=== PATIENT | female | born 1985 ===

== ENCOUNTER 2018-06-22 16:18 | Emergency (ER) | payer OTHER ==
[2018-06-22 16:44] VITALS: BMI 28.9
--- NOTE | 2018-06-22 17:32 | OBDCSUM ---
Datetime: 06/22/2018 17:22 Discharged to, Provider: Home Follow up at, Provider: Dr. Pantoja Disch Instr Activity: Normal activity; May be up to bathroom; May be up for meals; May Shower Disch Instr Diet: Regular Discharge Instructions, Provider: Routine instructions given Discharge Diagnosis, Provider: PROM - Indicate X Hours Discharge Time: 06/22/2018 17:23 Follow up in weeks, Provider: Jul 05, 2018 Disch Referrals: None Discharge Comment, Provider: Pre-term labor precautions given Encouraged to increase hydration Continue with current care Discharge Diagnosis Prov Other: Rule out PPROM at 30.6 weeks
--- NOTE | 2018-06-22 17:32 | OBHP ---
Datetime: 06/22/2018 16:23 IP Adm Impression: , intrauterine IP Admit Plan: Discharge home Admit Comment, IP Provider: CC: Clear vaginal watery vaginal discharge HPI: Patient is a 32 yo at 30.6 weeks with KRISTIAN (08/25/2018) and LMP (11/18/17), who presents to the ED with complaint of clear watery vaginal discharge with mild odor that she noted this morning at 11am. Patient states that she called her Mobile Security Specialist, who then asked her to present to the hospital to ru le out rupture membrane. Upon questioning, patient admits to movement and denies contractions, vaginal bleeding, dysuria, and recent sexual activities. Patient was treated for UTI 2 weeks ago. : Dr. Pantoja OB Hx: G1: Current, no complications. 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 Denies current or former use of Tobacco or illicit guillermo g and admits to social ETOH before VS: See above, wnl PE: See in PE comment box A/P: Patient is a 32 year old female at 30.6 weeks, rule out PPROM: 1. EFM and TOCO, reveiwed, approprate for gestational age 2. Physical examination ruled out PPROM 3. Bedside US: heartbeat present, breeched position, normal BECKI 4. Notify private attending 5. Plans for discharge with labor precautions given All plans and management discussed with Dr. Lang Above by Dr. Amaro, PGY 2 I have seen and examined the patient with Dr. Amaro, agree with above notations patient is not ruptured, no signs of labor labor precuations discussed encouraged PO hydration follow up with private physician as scheduled on 07/05 discharge home Pelvic Type - PN: Adequate Extremities - PN: Not Done Abdomen - PN: Not Done Back - PN: Not Done Breast - PN: Not Done Lungs - PN: Not Done Heart - PN: Not Done Thyroid - PN: Not Done Neurologic - PN: Not Done HEENT - PN: Normal General - PN: Normal Presentation-Admit: Breech FHR - Baseline A Provider: 140 Comments, ACOG Physical Exam: Gen: NAD, well-appearing Cardio: RRR, +S1, + S2 Pulm: CTA b/l Abd: Soft, gravid Ext: No edema SSE: no pooling, negative nitrazine SVE: closed cervix, unengaged Gestation - Est Wks by US: 30.6 Pool Provider: Negative Nitrazine Provider: Negative Vital Signs Provider: Reviewed; Within Normal Limits IP Chief Complaint: Suspected ruptured membranes NICHD Accel Fetus A IP Provider: 10X10 FHR Category Provider Fetus A: Category I NICHD Decel Fetus A IP Provider: None Dilatation, Provider: 0 Genitourinary Exam: Normal DTRs - PN: Not Done
[2018-06-22 22:03] VITALS: BP 110/62; PULSE 67; RESP 18; TEMP 97.2
== END 2018-06-22 17:38 | disposition home or self-care (01) ==
LOC: C.EROB 16:18
DX: O26.93 Pregnancy related conditions, unspecified, third trimester (principal); Z3A.30 30 weeks gestation of pregnancy

== ENCOUNTER 2018-07-08 23:06 | Emergency (ER) | payer OTHER ==
--- NOTE | 2018-07-09 02:15 | OBHP ---
Datetime: 07/09/2018 02:08 IP Adm Impression: , intrauterine IP Admit Plan: Observation/Evaluation Admit Comment, IP Provider: 32 @ 33w presents today with complaints of trauma fall. Pt was gett ing out of the care and she lost her balance and fell and landed on her left knee and right wrist. A/P: S/P TRAUMA 1) VSS; AFEBRILE 2) MONITOR 4 HOURS. 3) SEND BACK TO THE ER TO MONITOR/TREAT LEFT KNEE- ABRASION D/T HER FALL. Pelvic Type - PN: Adequate Extremities - PN: Normal Abdomen - PN: Normal Back - PN: Normal Breast - PN: Normal Lungs - PN: Normal Heart - PN: Normal Thyroid - PN: Normal Neurologic - PN: Normal HEENT - PN: Normal General - PN: Normal FHR - Baseline A Provider: 150 IP Hx Assessment: The History has been Reviewed and is Current EGA AdmitDate IP: 33.2 IP Chief Complaint: Trauma/Fall NICHD Variability Prov Fetus A: Moderate 6-25bpm NICHD Accel Fetus A IP Provider: 15X15 Genitourinary Exam: Normal DTRs - PN: Normal
[2018-07-10 11:13] VITALS: BP 98/61; PULSE 72; RESP 18; TEMP 97.9
== END 2018-07-09 03:40 | disposition still patient (30) ==
LOC: C.EROB 23:06
DX: O26.93 Pregnancy related conditions, unspecified, third trimester (principal); Z3A.33 33 weeks gestation of pregnancy

== ENCOUNTER 2018-07-09 03:46 | Emergency (ER) | payer OTHER ==
[2018-07-09 03:47] VITALS: BMI 28.9
[2018-07-09 04:14] VITALS: BP 109/72; PULSE 70; RESP 20; TEMP 97.6; O2SAT 100
--- NOTE | 2018-07-09 04:24 | C.PDOC ---
History Of Present Illness 32 y/o female presents to the ED for evaluation of left knee after she fell onto the knee at home. Patient is currently in the late stage of her . She was evaluated upstairs by Dr. Pantoja, who states there are no related concerns at this time. Her wound was cleaned and ice was applied. Patient was sent to the ED for further evaluation. She denies head injury or extremity weakness. Time Seen by Provider: 07/09/18 04:13 Chief Complaint (Nursing): Lower Extremity Problem/Injury History Per: Patient History/Exam Limitations: no limitations Onset/Duration Of Symptoms: Hrs Current Symptoms Are (Timing): Still Present Additional History Per: Patient - Ankle/Foot Description Of Injury: Fell Past Medical History Reviewed: Historical Data, Nursing Documentation, Vital Signs Vital Signs: Last Vital Signs Temp 97.6 F 07/09/18 04:04 Pulse 70 07/09/18 04:04 Resp 20 07/09/18 04:04 BP 109/72 07/09/18 04:04 Pulse Ox 100 07/09/18 04:04 - Medical History PMH: No Chronic Diseases Surgical History: No Surg Hx Family History: States: Unknown Family Hx - Social History Hx Alcohol Use: No Hx Substance Use: No Review Of Systems Musculoskeletal: Positive for: Other (left knee pain ) Neurological: Negative for: Weakness, Numbness Physical Exam - Physical Exam Appears: Non-toxic, No Acute Distress Skin: Normal Color, Warm, Dry, Other (small abrasion to left knee ) Extremity: Normal ROM (left knee ), Capillary Refill (less than 2 seconds ), No Deformity, Swelling (minor, pre-patellar ), No Other (joint effusion ) Neurological/Psych: Oriented x3, Normal Speech, Normal Cognition ED Course And Treatment O2 Sat by Pulse Oximetry: 100 (on RA) Pulse Ox Interpretation: Normal Progress Note: Tylenol PO given. Medical Decision Making Medical Decision Making: prepatellar contusion Bursitis NSAIDS/tylenol ice defer x-ray as no joint involvement, and normal knee fxn prior eval tonight w Dr. Pantoja for late wnl Disposition Doctor Will See Patient In The: Office Counseled Patient/Family Regarding: Studies Performed, Diagnosis - Disposition Referrals: Mehran Pantoja MD [Staff Provider] - Disposition: HOME/ ROUTINE Disposition Time: 04:23 Condition: GOOD Additional Instructions: ice packs to anterior knee 1/2 hour per hour Tylenol 650 mg every 6 hours as needed outpatient follow-up as needed. Instructions: Prepatellar Bursitis Forms: [facility] ([place]) - Clinical Impression Clinical Impression: Contusion of knee, left - Scribe Statement The provider has reviewed the documentation as recorded by the Scribe (Siria Lang) Provider Attestation: All medical record entries made by the Scribe were at my direction and personally dictated by me. I have reviewed the chart and agree that the record a ccurately reflects my personal performance of the history, physical exam, medical decision making, and the department course for this patient. I have also personally directed, reviewed, and agree with the discharge instructions and disposition.
== END 2018-07-09 04:53 | disposition home or self-care (01) ==
LOC: C.ER 03:46
DX: S80.02XA Contusion of left knee, initial encounter (principal); W18.30XA Fall on same level, unspecified, initial encounter; Y92.009 Unspecified place in unspecified non-institutional (private) residence as the place of occurrence of the external cause

== ENCOUNTER 2018-07-10 12:55 | Emergency (ER) | payer OTHER ==
[2018-07-10] MEDS ORDERED: Sodium Chloride 0.9% 1,000 ML IV ONE (13:43)
--- NOTE | 2018-07-10 13:48 | OBHP ---
Datetime: 07/10/2018 13:44 IP Adm Impression: , intrauterine IP Admit Plan: Observation/Evaluation; Discharge home Admit Comment, IP Provider: CC: irritability/crampimng HPI: Patient is a 32 yo at 33.3 weeks with KRISTIAN (08/25/2018) and LMP (11/18/17), who presents wit h abdominal cramping and loose stools since this morning. She had takeout yesterday. +FM - CTX - LOF - VB. Patient was treated for UTi in this prengnacy. Patient was evaluated for a fall over the weeken d, no abdominal trauma. : Dr. Pantoja OB Hx: G1: Current, no complications. 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 Denies any hx of fibroids, ovarian cyst, STDs and abnormal pap smear PMHx: Denies PSHx: Denies FHx: Mother (Pre-diabetes, Arthritis), Father ( Thalassemia minor), Paternal Uncle (Gastric cancer ), Maternal cousin (Lymphoma), Maternal Grandmother (Diabetic) Medications: Prenatals Allergies: Shell fish A/P: with IUP at 33 weeks with GI distress stable abfebrile EFM TOCO appropriate for gestational age 1 L NS hydration counseled to maintain hydration and consume known food sources follow up with private physician FHR - Baseline A Provider: 140 EGA AdmitDate IP: 33.3 Vital Signs Provider: Reviewed IP Chief Complaint: Maternal discomfort NICHD Variability Prov Fetus A: Moderate 6-25bpm NICHD Accel Fetus A IP Provider: 15X15 FHR Category Provider Fetus A: Category I NICHD Decel Fetus A IP Provider: None Dilatation, Provider: 0 Effacement, Provider: 0 Station, Provider: -3
[2018-07-11 00:20] VITALS: BMI 29.6
[2018-07-11 13:53] VITALS: BP 106/54; PULSE 75; RESP 18; TEMP 97.5; O2SAT 97
== END 2018-07-10 16:05 | disposition home or self-care (01) ==
LOC: C.EROB 12:55
DX: O26.893 Other specified pregnancy related conditions, third trimester (principal); K30 Functional dyspepsia; Z3A.33 33 weeks gestation of pregnancy
CPT/HCPCS: 86850; 86900; 99283; J7030